=== PATIENT | female | born 1990 | race Caucasian/White ===

== ENCOUNTER → 2017-01-21 | Outpatient (CLI) | payer OTHER | LOC: MOB LAB 16:11 | PROVIDERS: ATTEND Student in an Organized Health Care Education/Training Program | DX: Z34.03 Encounter for supervision of normal first pregnancy, third trimester (principal); Z3A.36 36 weeks gestation of pregnancy | CPT/HCPCS: 87150 ==

== ENCOUNTER 2017-01-28 07:57 | Outpatient (CLI) | payer OTHER ==
[~2017-01-28 07:57] MED LIST: LIDOCAINE W/ SODIUM BICARB 0.5 ML SYR SUBD PRN; Lactated Ringers 1,000 ML PRIMARY IV ONE; NORMAL SALINE 10 ML SYRINGE FLUSH IVP PRN; TERBUTALINE SULFATE 1 MG/1 ML SDV SUBCUT ONE
[2017-01-28] MEDS ORDERED: Lactated Ringers 1,000 ML PRIMARY IV SCH (08:00)
[2017-01-28 08:36] VITALS: RESP 20; TEMP 98.6
[2017-01-28 08:41] LABS: HEMATOCRIT 39.1 % (37.0-47.0); HEMOGLOBIN 13.3 g/dL (12.0-16.0); MEAN PLATELET VOLUME 10.5 FL (7.4-12.2); RED BLOOD COUNT 4.44 10^6/uL (4.20-5.40)
[2017-01-28 08:58] LABS: BLOOD UREA NITROGEN 8 mg/dL (7-22); CALCIUM 9.1 mg/dL (8.7-10.7); EST GLOMERULAR FILTRATION > 60 (>60 ml/min/1.73m(2)); SERUM ALBUMIN 3.5 g/dL (3.5-4.8); URIC ACID 4.4 mg/dl (2.5-6.2)
--- NOTE | 2017-01-28 09:54 | PDOC(PROG) ---
Intake - - Reason for Visit/Chief Complaint: Other Additional Reason(s) for Visit: version Admitted From: Home - Estimated Due Date: 02/16/17 Gestational Age in Weeks and Days: 37 Weeks and 2 Days : 1 - Labs Blood Type and Rh: O+ Group B Strep: Negative Hepatitis B Surface Antigen: Absent HIV: Negative Rubella Status: Immune VDRL/RPR: Absent Maternal - Vital Signs Last Taken Vital Signs: Vital Signs - Last Taken Temperature 98.6 F 01/28/17 08:32 Pulse Rate 104 H 01/28/17 08:32 Respiratory Rate 20 01/28/17 08:32 Blood Pressure 141/77 01/28/17 08:32 Pulse Ox 97 01/28/17 08:32 - Uterine Activity Uterine Contraction Monitor Mode: None - Vaginal Discharge Vaginal Bleeding Amount: None Monitoring - Uterine Activity Uterine Contraction Monitor Mode: None Results - Labs CBC and BMP: 01/28/17 Unknown 01/28/17 Unknown - Bedside Testing Bedside Urine Ketone: Trace Bedside Urine Leukocytes Esterase: Negative Bedside Urine Nitrite: Negative Bedside Urine Occult Blood: Negative Bedside Urine Protein: Trace Bedside Specific [place]: 1.020 Assessment and Plan - Patient Problems (1) Breech presentation Current Visit: Yes Status: Acute Support Text: 27 yo at 37 2/7 weeks gestation noted to be breech on u/s at routine visit last week. Scheduled for ECV today. Consents for ECV and C/S if needed discussed in detail. We did discuss risk of abruption, intolerance. We also discussed risk of unsuccessful version, or even if successful the could still flip just prior to delivery. Reactive NST prior. Once the OR was clean and ready 0.25 mcg Terbutaline was given SQ. ECV was then attempted. Baby' s position was breech, with spine wrapping around mom's R side, head up under ribs on the left. Placenta anterior/fundal more to the patient's L. Patient's abdomen was covered in coconut oil. Dr. Craig was at the patient's L side attempting to get the head to move, I was pushing the bottom from the patient's L side. Intermittent monitoring of FHR with u/s was reassuring throughout. Despite multiple attempts at version, we were unsuccessful in getting the head to budge. Decision made to stop attempt at version. The patient and tolerated the procedure well. Will plan to proceed with primary c/s for breech presentation, scheduled for 39 2/7 weeks gestation. Patient was monitored for an hour after the procedure. Patient's history notable for chronic HTN. Of note, patient's blood pressure was elevated on arrival to 140s-150s systolic over 90s diastolic. Gestational HTN panel drawn, wnl. Trace protein on urine dip. BP improved after the procedure to 126/71. Will plan to collect a 24 hour urine protein. Close f/u with me in clinic still.
== END 2017-01-28 10:24 | disposition home or self-care (01) ==
LOC: OBOP 07:57
PROVIDERS: ATTEND Student in an Organized Health Care Education/Training Program
DX: O32.1XX0 Maternal care for breech presentation, not applicable or unspecified (principal); O13.3 Gestational [pregnancy-induced] hypertension without significant proteinuria, third trimester; Z3A.37 37 weeks gestation of pregnancy
CPT/HCPCS: 59025; 80053; 81003; 83615; 84550; 85025; 96360; 96361; 96372; 99211; J3105; J7120

== ENCOUNTER → 2017-01-29 | Outpatient (CLI) | payer OTHER ==
[2017-01-29 11:06] LABS: 24 HOUR URINE CREA CONCENTR 33.9 mg/dL
[2017-01-30 13:51] LABS: 24 HOUR URINE TOTAL VOLUME 4050 ML
== END ==
LOC: LAB 10:29
PROVIDERS: ATTEND Student in an Organized Health Care Education/Training Program
DX: O13.3 Gestational [pregnancy-induced] hypertension without significant proteinuria, third trimester (principal); Z3A.37 37 weeks gestation of pregnancy
CPT/HCPCS: 82570; 84156

== ENCOUNTER 2017-02-01 14:04 | Outpatient (CLI) | payer OTHER ==
[2017-02-01 14:24] VITALS: RESP 20; TEMP 98.6
--- NOTE | 2017-02-01 15:15 | PDOC(PROG) ---
Intake - - Reason for Visit/Chief Complaint: BP Monitoring, NST Admitted From: Home - Estimated Due Date: 02/16/17 Gestational Age in Weeks and Days: 37 Weeks and 6 Days : 1 Para: 0 - Labs Blood Type and Rh: O+ Group B Strep: Negative Hepatitis B Surface Antigen: Absent HIV: Negative Rubella Status: Immune VDRL/RPR: Absent Maternal - Vital Signs Last Taken Vital Signs: Vital Signs - Last Taken Temperature 98.6 F 02/01/17 14:15 Pulse Rate 78 02/01/17 14:30 Respiratory Rate 20 02/01/17 14:15 Blood Pressure 132/80 02/01/17 14:43 Pulse Ox 96 02/01/17 14:15 - Uterine Activity Uterine Contraction Monitor Mode: External Uterine Contraction Pattern: Regular Uterine Tone Measurement Phase: Resting - Vaginal Discharge Vaginal Bleeding Amount: None Vaginal Discharge Amount: None Monitoring - Uterine Activity Uterine Contraction Monitor Mode: External Uterine Contraction Pattern: Regular Uterine Tone Measurement Phase: Resting Results - Monitoring Monitor Assessment: Criteria Met - Bedside Testing Bedside Urine Ketone: Negative Bedside Urine Leukocytes Esterase: Negative Bedside Urine Nitrite: Negative Bedside Urine Occult Blood: Negative Bedside Specific [place]: 1.010 Assessment and Plan - Patient Problems (1) Chronic hypertension in obstetric context in third trimester Status: Acute Support Text: 27 yo at 37 6/7 weeks gestation. H/o obesity and chronic HTN prior to , has not had repeated elevated pressures during . Recent 24 hour urine protein <300mg still. NST reassuring today. No protein on urine Dip. One BP elevated today, but repeated checks all < 140/90. Continue biweekly NST, BP monitoring. Precautions.
== END 2017-02-01 15:04 | disposition home or self-care (01) ==
LOC: OBOP 14:04
PROVIDERS: ATTEND Student in an Organized Health Care Education/Training Program
DX: O13.3 Gestational [pregnancy-induced] hypertension without significant proteinuria, third trimester (principal); Z3A.37 37 weeks gestation of pregnancy
CPT/HCPCS: 59025; 81003; 99211

== ENCOUNTER 2017-02-05 16:39 | Outpatient (CLI) | payer OTHER ==
[2017-02-05] MEDS ORDERED: NORMAL SALINE 10 ML SYRINGE FLUSH IVP PRN (16:46)
[2017-02-05 17:01] VITALS: RESP 20; TEMP 98.1
[2017-02-05 17:03] LABS: HEMATOCRIT 39.8 % (37.0-47.0); HEMOGLOBIN 13.3 g/dL (12.0-16.0); MEAN CORPUSCULAR HEMOGLOBIN 29.6 PG (27-31); MEAN CORPUSCULAR HGB CONC 33.4 g/dL (33-37); MEAN CORPUSCULAR VOLUME 88.4 FL (81-99); MEAN PLATELET VOLUME 10.5 FL (7.4-12.2); RED BLOOD COUNT 4.5 10^6/uL (4.20-5.40)
[2017-02-05 17:13] LABS: BLOOD UREA NITROGEN 12 mg/dL (7-22); CALCIUM 9.4 mg/dL (8.7-10.7); EST GLOMERULAR FILTRATION > 60 (>60 ml/min/1.73m(2)); SERUM ALBUMIN 3.7 g/dL (3.5-4.8); URIC ACID 3.9 mg/dl (2.5-6.2)
== END 2017-02-05 17:35 | disposition left against medical advice (07) ==
LOC: OBOP 16:39
PROVIDERS: ATTEND Student in an Organized Health Care Education/Training Program
DX: O13.3 Gestational [pregnancy-induced] hypertension without significant proteinuria, third trimester (principal); Z3A.38 38 weeks gestation of pregnancy
CPT/HCPCS: 36415; 59025; 80053; 81003; 83615; 84550; 85025; 99211

== ENCOUNTER 2017-02-08 15:59 | Outpatient (CLI) | payer OTHER ==
[2017-02-08 17:30] VITALS: RESP 18; TEMP 98.3
== END 2017-02-08 17:04 | disposition home or self-care (01) ==
LOC: OBOP 15:59
PROVIDERS: ATTEND Student in an Organized Health Care Education/Training Program
DX: O13.3 Gestational [pregnancy-induced] hypertension without significant proteinuria, third trimester (principal); Z3A.38 38 weeks gestation of pregnancy
CPT/HCPCS: 59025; 99211

== ENCOUNTER 2017-02-11 06:06 | Inpatient (IN) | payer OTHER ==
[~2017-02-11 06:06] MED LIST changes: +CITRIC ACID/SODIUM CITRATE 30 ML CUP PO ONE; +CefOXitin Inj 2 GM in Sodium Chloride 0.9% 100 ML IV ONE; +Famotidine Inj 20 MG in Normal Saline Flush 10 ML IVP ONE; +Metoclopramide Inj 10 MG/2 ML VIAL IV ONE; -TERBUTALINE SULFATE 1 MG/1 ML SDV SUBCUT ONE
[2017-02-11] MEDS ORDERED: Oxytocin 20 Units + LR 1,000 ML IV SCH ×2 (06:15→09:32)
[2017-02-11] MEDS ORDERED: Lactated Ringers 1,000 ML PRIMARY IV SCH (06:15)
[2017-02-11 06:47] LABS: HEMATOCRIT 38.1 % (37.0-47.0); HEMOGLOBIN 13.1 g/dL (12.0-16.0); MEAN CORPUSCULAR HEMOGLOBIN 30.1 PG (27-31); MEAN CORPUSCULAR HGB CONC 34.4 g/dL (33-37); MEAN CORPUSCULAR VOLUME 87.6 FL (81-99); MEAN PLATELET VOLUME 10.4 FL (7.4-12.2); RED BLOOD COUNT 4.35 10^6/uL (4.20-5.40)
[2017-02-11 07:03] LABS: BLOOD UREA NITROGEN 11 mg/dL (7-22); CALCIUM 9.1 mg/dL (8.7-10.7); EST GLOMERULAR FILTRATION > 60 (>60 ml/min/1.73m(2)); SERUM ALBUMIN 3.2 g/dL (3.5-4.8); URIC ACID 4.4 mg/dl (2.5-6.2)
[2017-02-11] MEDS ORDERED: Oxytocin 20 Units + LR 1,000 ML IV ONE (07:22)
[2017-02-11] MEDS ORDERED: ePHEDrine Inj 50 MG/ML AMP ONE (07:23)
[2017-02-11] MEDS ORDERED: MORPHINE SULFATE/PF 10 MG/10 ML AMPULE ONE (07:25)
[2017-02-11] MEDS ORDERED: Lactated Ringers 1,000 ML PRIMARY IV ONE (08:53)
[2017-02-11] MEDS ORDERED: Famotidine Inj 20 MG in Normal Saline Flush 10 ML IVP PRN (09:32)
[2017-02-11] MEDS ORDERED: ONDANSETRON 4 MG/2 ML VIAL IVP PRN (09:32)
[2017-02-11] MEDS ORDERED: LANOLIN HPA 40 GM TUBE TOPICAL PRN (09:32)
[2017-02-11] MEDS ORDERED: OXYTOCIN 10 UNIT/1 ML IM ONE (09:32)
[2017-02-11] MEDS ORDERED: Naloxone Inj 0.01 MG, Sodium Chloride 0.9% vial 1 ML IVP PRN ×2 (09:32)
[2017-02-11] MEDS ORDERED: Nalbuphine Inj 20 MG/ML Ampule IVP PRN (09:32)
[2017-02-11] MEDS ORDERED: MISOPROSTOL 200 MCG TABLET RECTAL ONE (09:32)
[2017-02-11] MEDS ORDERED: Methylergonovine Tab 0.2 MG TAB PO PRN (09:32)
[2017-02-11] MEDS ORDERED: diphenhydrAMINE 50 MG/1 ML VIAL IV PRN (09:32)
[2017-02-11] MEDS ORDERED: CALCIUM CARBONATE 500 MG (TUMS) CHEWABLE TABLET PO PRN (09:32)
[2017-02-11] MEDS ORDERED: Carboprost Inj 250 MCG/ML AMP IM PRN (09:32)
[2017-02-11] MEDS ORDERED: D5-LR 1,000 ML PRIMARY IV SCH (09:32)
[2017-02-11] MEDS ORDERED: diphenhydrAMINE 25 MG CAPSULE PO PRN (09:32)
[2017-02-11] MEDS ORDERED: METHYLERGONOVINE MALEATE 0.2 MG/1 ML VIAL IM PRN (09:32)
--- NOTE | 2017-02-11 09:36 | OB.OP.NOTE ---
Operative Report Surgeon: oYgi Brown MD Soccer Commentator: Wally Craig MD Anesthesia Type: Regional Anesthesia Provider: Kartik Escobar CRNA Surgery Date: 02/11/17 Postoperative Diagnosis: Term , breech presentation Procedure: primary LTCS Complications: none apparent Estimated Blood Loss (mL): 700 Urine Output (mL): 450 Fluids: 1 L LR in preop, 1 L LR in OR Indications: Breech presentation, unsuccessful ECV 1 week prior Findings: TAGA female infant, Aprgars 7,9, 7lbs Description of Procedure: The patient was taken to the operating room where spinal anesthesia was found to be adequate. She was then prepared and draped in the normal sterile fashion in the dorsal supine position with a leftward tilt. A Pfannenstiel skin incision was then made with the scalpel and carried through to the underlying layer of fascia with Bovie. The fascia was incised in the midline and the incision extended laterally with the Bovie. The superior aspect of the fascial incision was then grasped with Avni clamps, elevated and the underlying rectus muscles dissected off bluntly. Attention was then turned to the inferior aspect of this incision which in a similar fashion was grasped with Avni clamps and the rectus muscles dissected off both bluntly and with the Bovie. The rectus muscle was then in the midline, and the peritoneum identified, tented up, and entered in blunt fashion. The peritoneal incision was then extended superiorly and inferiorly with good visualization of the bladder. The Aleksander retractor was then inserted and the vesicouterine peritoneum was identified. The lower uterine segment incised in the transverse fashion with the scalpel. The uterine incision was then extended laterally blunt fashion. The 's buttock was delivered first with some effort, she did void and stool prior to full extraction. Her R knee was bent and leg extracted, followed by L. Her arms were delivered and then her head. A nuchal cord x 1 was noted. The nose and mouth were suctioned with the bulb suction and the cord clamped and cut. The infant was handed off to the awaiting nurse. Cord gases and cord blood were sent for analysis. The placenta was then removed manually; the uterus exteriorized, and cleared of all clots and debris. The uterine incision was repaired with 0 Vicryl in a running, locked fashion. A second layer of the same suture was used to obtain excellent hemostasis. The peritoneal cavity was then copiously irrigated with warm saline. The uterus was returned to the abdomen. The paracolic gutters were copiously irrigated with warm saline and a second look at the uterus incision which revealed a small bleed on the inferior margin. This was closed with a single figure of 8 0 vicryl stitch. Excellent hemostasis was noted. The peritoneum was closed with 3-0 Vicryl. The fascia reapproximated with 0 vicryl in a running fashion. I closed from the patient's L to just past midline. Dr. Craig closed from the R to just passed my suture. These 2 were then tied together. The subcutaneous space was irrigated copiously with warm saline and then closed first with 3-0 Vicryl and then more superficially with stratafix absorbable sutures. The skin was reapproximated with Steri-Strips and a Silverlon dressing applied. Fundal massage was completed with no clots in vaginal vault. Cervix was dilated to 1 cm. The patient tolerated the procedure well. Sponge, lap, and needle counts were correct x2. Mefoxin was given preoperatively less than one hour prior to incision time. The patient was taken to the recovery room in stable condition.
[2017-02-11] MEDS: KETOROLAC 30 MG/1 ML VIAL IVP PRN ×2 (11:22→18:35)
[2017-02-11] MEDS: oxyCODONE-ACETAMINOPHEN 5-325 TAB PO PRN (13:00)
[2017-02-11] MEDS: NORMAL SALINE 10 ML SYRINGE FLUSH IVP PRN (18:35)
[2017-02-12] MEDS: KETOROLAC 30 MG/1 ML VIAL IVP PRN ×2 (00:48→07:50)
[2017-02-12] MEDS: NORMAL SALINE 10 ML SYRINGE FLUSH IVP PRN ×2 (00:49→07:50)
[2017-02-12 05:30] LABS: HEMATOCRIT 30.5 % (37.0-47.0); HEMOGLOBIN 10.2 g/dL (12.0-16.0); MEAN CORPUSCULAR HEMOGLOBIN 30.1 PG (27-31); MEAN CORPUSCULAR HGB CONC 33.4 g/dL (33-37); MEAN PLATELET VOLUME 10.4 FL (7.4-12.2); RED BLOOD COUNT 3.39 10^6/uL (4.20-5.40)
[2017-02-12] MEDS: oxyCODONE-ACETAMINOPHEN 5-325 TAB PO PRN ×4 (07:51→22:40)
--- NOTE | 2017-02-12 08:34 | OB.PROGRES ---
Subjective Post Op Day: 1 Pain Management: PO Talavera Catheter: Yes Flatus: Yes Diet: Regular Feeding Method: Exculsively Ambulating: Yes Objective - General General Appearance: POSITIVE: No Acute Distress, Cooperative - Cardiovacular Cardiovascular Exam: POSITIVE: RRR Edema: +1 Pedal Edema Extremities: Negative Vivek's - Bilaterally - Respiratory Respiratory Exam: POSITIVE: Clear to Auscultation - Bilaterally - Abdomen Bowel Sounds: Present Abdominal Wound Assessment: Silverlone Dressing - Fundus/Lochia/Perineum Uterus Consistency: Firm - Breast Breast Condition: POSITIVE: Soft Nipple Surface Characteristics: POSITIVE: Skin Intact, Smooth Assesstment / Plan (1) Delivery by section for breech presentation Current Visit: Yes Status: Acute Support Text: 27 yo G1 now P1 s/p primary LTCS for breech presentation. POD 1. -Pain well controlled -Ambulate, shower, d/c talavera today -Tolerating regular diet -Anticipate d/c in 24 - 48 hours
[2017-02-12] MEDS: Senna/Docusate Tab 1 TAB TAB PO SCH ×2 (09:01→20:59)
[2017-02-12] MEDS: Prenatal Multivitamin Tab 1 TAB TAB PO SCH (09:01)
--- NOTE | 2017-02-12 10:08 | CRNA.PROGR ---
Anesthesia Note Anesthesia Progress Note: Sitting up in bed with baby and visiting with spouse. Has been ambulatory ad aly and has no questions or concerns regarding anesthetic course. Vital Signs (24 hrs) Temp Pulse Pulse Resp BP BP Pulse Ox 02/12/17 08:51 97.8 F 74 18 130/75 91 02/12/17 05:30 98.3 F 88 16 125/87 96 02/12/17 00:45 98.7 F 78 18 128/72 97 02/11/17 20:15 98.2 F 72 71 18 122/68 93 02/11/17 17:00 98.0 F 78 16 124/71 94 02/11/17 14:07 97.6 F 74 18 130/82 97 02/11/17 12:45 97.6 F 76 16 130/84 100 02/11/17 11:45 97.8 F 73 18 144/80 98 02/11/17 11:15 97.8 F 76 16 137/79 99 02/11/17 10:45 97.8 F 64 16 133/72 98 02/11/17 10:30 97.8 F 70 16 141/77 98 02/11/17 10:15 97.6 F 68 18 115/67 96 Laboratory Results 02/11/17 02/12/17 Range/Units 06:40 05:24 WBC 12.85 H 11.23 H (4.8-10.8) 10^3/uL RBC 4.35 3.39 L (4.20-5.40) 10^6/uL Hgb 13.1 10.2 L (12.0-16.0) g/dL Hct 38.1 30.5 L (37.0-47.0) % MCV 87.6 90.0 (81-99) FL MCH 30.1 30.1 (27-31) PG MCHC 34.4 33.4 (33-37) g/dL RDW Std Deviation 41.3 42.4 (39-50) fL RDW Coeff of Xiao 13.4 13.4 (11.5-14.5) % Plt Count 282 225 (140-350) 10*3/uL MPV 10.4 10.4 (7.4-12.2) FL Sodium 135 (135-145) meq/L Potassium 4.1 (3.8-5.2) meq/L Chloride 107 (98-112) meq/L Carbon Dioxide 18 L (23-33) meq/L Anion Gap 10 (5-20) BUN 11 (7-22) mg/dL Creatinine 0.5 (0.50-1.20) mg/dL Estimated GFR > 60 (>60 ml/min/1.73m(2)) BUN/Creatinine Ratio 22.00 H (6-20) Glucose 75 L (78-110) mg/dL Calculated Osmolality 277.0 (267-292) mOsm/kg Uric Acid 4.4 (2.5-6.2) mg/dl Calcium 9.1 (8.7-10.7) mg/dL Total Bilirubin 0.4 (0.3-1.2) mg/dL AST 19 (8-39) IU/L ALT 20 (9-52) IU/L Alkaline Phosphatase 84 (38-126) IU/L Lactate Dehydrogenase 414 (313-618) IU/L Total Protein 6.1 (6.1-8.0) g/dL Albumin 3.2 L (3.5-4.8) g/dL Globulin 2.9 (2.50-4.10) g/dL Albumin/Globulin Ratio 1.10 L (1.3-2.0) mg/g Blood Type O POSITIVE Antibody Screen Negative
[2017-02-12] MEDS: IBUPROFEN 800 MG TABLET PO PRN ×2 (13:06→20:58)
[2017-02-13] MEDS: oxyCODONE-ACETAMINOPHEN 5-325 TAB PO PRN ×2 (03:01→08:24)
[2017-02-13] MEDS: IBUPROFEN 800 MG TABLET PO PRN (05:04)
[2017-02-13 07:59] VITALS: TEMP 97.9
[2017-02-13 08:01] VITALS: RESP 18
[2017-02-13] MEDS: Senna/Docusate Tab 1 TAB TAB PO SCH (08:23)
[2017-02-13] MEDS: Prenatal Multivitamin Tab 1 TAB TAB PO SCH (08:23)
--- NOTE | 2017-02-13 10:23 | DCSUMMARY ---
Hospitalization Summary Admit Date: 02/11/17 Discharge Date: 02/13/17 Primary Diagnosis:: Primary LTCS for breech presentation Delivery Type: Hospital Course: 27 yo G1 now P1 presented at 39 2/7 weeks gestation for primary LTCS for breech presentation. ECV was attempted at 37 2/7 weeks gestation, unsuccessful however. Patient history notable for chronic HTN, improved with weight loss. No e/o preeclampsia or HTN during , although she did have elevated pressures the morning of surgery. Uncomplicated LTCS. She did very well post op. Pain well control, ambulated early, tolerating a regular diet. / Postop Complications: None apparent [place] Complications: None apparent Exam - Vitals Vital Signs: Vital Signs Temperature 97.9 F Temperature Source Oral Pulse Rate [Apical] 70 Pulse Rate [Pulse Oximeter] 73 Pulse Rate 88 Respiratory Rate 18 Blood Pressure [Left Arm] 119/82 Blood Pressure [Right Arm] 135/80 Blood Pressure 130/84 Pulse Ox 94 Oxygen Flow Rate 1 Oxygen Delivery Method Room Air Height 5 ft 8 in Weight 246 lb - General General Appearance: POSITIVE: No Acute Distress, Cooperative - Head Head Exam: POSITIVE: Normal Inspection - Eye Eye Exam: POSITIVE: Normal Appearance - ENT ENT Exam: POSITIVE: Normal Exam - Neck Neck Exam: POSITIVE: Normal Inspection - Respiratory Respiratory Exam: POSITIVE: Clear to Auscultation - Bilaterally, Breathing Non Labored. NEGATIVE: Rales, Rhonci, Wheezes - Cardiovascular Cardiovascular Exam: POSITIVE: RRR - GI/Abdominal GI/Abdominal Exam: POSITIVE: Normal Bowel Sounds Additional GI/Abdominal Exam Details: Fundus firm at umbilicus - Extremities Extremities Exam: POSITIVE: Negative Vivek's sign, +1 Edema - Neurological Neurological Exam: POSITIVE: Alert, Oriented x 3 - Psychiatric Psychiatric Exam: POSITIVE: Normal Affect, Normal Mood - Integumentary Integumentary Exam: POSITIVE: Normal Color Patient Problems - Patient Problem List (1) Delivery by section for breech presentation Current Visit: Yes Status: AcuteSupport Text: 27 yo G1 now P1 s/p primary LTCS for breech presentation. POD 2. -Pain well controlled -Breast feeding, has worked with . Nipple shield has ultimately worked the best. -Tolerating regular diet, + flatus, no BM yet -Plans to do mini pill for contraception at 6 week pp visit -H/o chronic HTN, one elevated pressure last night, normal this morning. Will recheck tomorrow when she brings baby in and follow at home. To call for pressures >140/90 -D/c to home today. -Rx for Percocet 5/325 #30 written, continue stool softener, PNV, ibuprofen. -F/u in 1 week for incision check, 6-8 weeks for pp check
== END 2017-02-13 11:20 | disposition home or self-care (01) | DRG 766 ==
LOC: OBOR 06:06 → MED/SURG 09:50 → OBIP 12:00
PROVIDERS: ADMIT Student in an Organized Health Care Education/Training Program; ATTEND Student in an Organized Health Care Education/Training Program
PROC: 10D00Z1 Extraction of Products of Conception, Low, Open Approach (ICD-10-PCS; principal; 2017-02-11 08:00)
DX: O32.1XX0 Maternal care for breech presentation, not applicable or unspecified (principal); Z3A.39 39 weeks gestation of pregnancy; Z37.0 Single live birth
CPT/HCPCS: 36415; 80053; 81003; 83615; 84550; 85025; 85027; 86850; 86900; 86901; 94150; 94761; J1885; J2765; J7050; J7120

== ENCOUNTER 2017-02-14 10:24 | Outpatient (CLI) | payer OTHER ==
[2017-02-14 11:22] LABS: HEMATOCRIT 32.6 % (37.0-47.0); MEAN CORPUSCULAR HEMOGLOBIN 30.6 PG (27-31); MEAN CORPUSCULAR HGB CONC 33.7 g/dL (33-37); MEAN CORPUSCULAR VOLUME 90.6 FL (81-99); MEAN PLATELET VOLUME 10.2 FL (7.4-12.2); RED BLOOD COUNT 3.6 10^6/uL (4.20-5.40)
[2017-02-14 11:33] LABS: BLOOD UREA NITROGEN 9 mg/dL (7-22); CALCIUM 8.6 mg/dL (8.7-10.7); EST GLOMERULAR FILTRATION > 60 (>60 ml/min/1.73m(2)); URIC ACID 4.4 mg/dl (2.5-6.2)
== END 2017-02-14 11:52 | disposition home or self-care (01) ==
LOC: OBOP 10:24
PROVIDERS: ATTEND Student in an Organized Health Care Education/Training Program
DX: O13.5 Gestational [pregnancy-induced] hypertension without significant proteinuria, complicating the puerperium (principal)
CPT/HCPCS: 36415; 80053; 81003; 83615; 84550; 85025

== ENCOUNTER → 2017-02-15 | Outpatient (CLI) | payer OTHER ==
[~2017-02-15] MED LIST changes: -CITRIC ACID/SODIUM CITRATE 30 ML CUP PO ONE; -CefOXitin Inj 2 GM in Sodium Chloride 0.9% 100 ML IV ONE; -Famotidine Inj 20 MG in Normal Saline Flush 10 ML IVP ONE; -LIDOCAINE W/ SODIUM BICARB 0.5 ML SYR SUBD PRN; -Lactated Ringers 1,000 ML PRIMARY IV ONE; -Metoclopramide Inj 10 MG/2 ML VIAL IV ONE
--- NOTE | 2017-02-21 10:50 | PDOC(PROG) ---
Intake - - Reason for Visit/Chief Complaint: Section - Para: 0 Term Births: 1 Births: 0 Number of Abortions (Spont./Elective): 0 Living Children: 1 - Labs Blood Type and Rh: O+ Maternal - Vital Signs Last Taken Vital Signs: Vital Signs - Last Taken Temperature Pulse Rate Respiratory Rate Blood Pressure 138/86 02/15/17 10:38 Pulse Ox Assessment and Plan - Patient Problems (1) hypertension Status: AcuteSupport Text: Patient with a h/o chronic HTN prior to , BP ok through . OP check of BP notable for mildly elevated pressures. Precautions. Plan to recheck again tomorrow.
== END ==
LOC: OBOP 09:58
PROVIDERS: ATTEND Student in an Organized Health Care Education/Training Program
DX: O13.5 Gestational [pregnancy-induced] hypertension without significant proteinuria, complicating the puerperium (principal)
CPT/HCPCS: 99211

== ENCOUNTER 2017-02-17 10:34 | Outpatient (CLI) | payer OTHER ==
[2017-02-17 10:56] LABS: HEMATOCRIT 35.5 % (37.0-47.0); HEMOGLOBIN 11.9 g/dL (12.0-16.0); MEAN CORPUSCULAR HEMOGLOBIN 29.8 PG (27-31); MEAN CORPUSCULAR HGB CONC 33.5 g/dL (33-37); MEAN PLATELET VOLUME 9.4 FL (7.4-12.2); RED BLOOD COUNT 3.99 10^6/uL (4.20-5.40)
--- NOTE | 2017-02-17 11:14 | PDOC(PROG) ---
Intake - - Reason for Visit/Chief Complaint: Section - : 1 Para: 1 Term Births: 1 Births: 0 Number of Abortions (Spont./Elective): 0 Living Children: 1 - Labs Blood Type and Rh: O+ Results - Labs CBC and BMP: 02/17/17 10:54 02/17/17 10:54 Additional Lab Results: 02/17/17 10:54 Total Bilirubin 0.4 AST 43 H ALT 60 H D Alkaline Phosphatase 71 Lactate Dehydrogenase 518 - Bedside Testing Bedside Urine Protein: Negative Assessment and Plan - Patient Problems (1) hypertension Status: AcuteSupport Text: 27 yo G1now P1, PPD 6, with persistent elevated blood pressures PP. H/o chrnoic HTN but BPs stable through . No other s/s preeclampsia. Urine protein negative, AST/ALT slightly elevated today. Will go ahead and start Nifedipine XR 30mg po daily. D/c motrin. F/u with me in clinic in 2 days as previously scheduled. Strict return precautions discussed.
[2017-02-17 11:26] LABS: BLOOD UREA NITROGEN 10 mg/dL (7-22); BUN/CREATININE RATIO 16.66 (6-20); CALCIUM 9.1 mg/dL (8.7-10.7); EST GLOMERULAR FILTRATION > 60 (>60 ml/min/1.73m(2)); SERUM ALBUMIN 3.4 g/dL (3.5-4.8); URIC ACID 4.9 mg/dl (2.5-6.2)
== END 2017-02-17 11:37 | disposition home or self-care (01) ==
LOC: OBOP 10:34
PROVIDERS: ATTEND Student in an Organized Health Care Education/Training Program
DX: O13.5 Gestational [pregnancy-induced] hypertension without significant proteinuria, complicating the puerperium (principal)
CPT/HCPCS: 36415; 80053; 81003; 83615; 84550; 85025